=== PATIENT | female | born 1985 | race Two or more races ===

== ENCOUNTER 2020-10-25 10:32 | Emergency (ER) | payer SELFPAY ==
[~2020-10-25] VITALS: Ht 162.6 cm; Wt 74.5 kg
[2020-10-25 10:45] VITALS: BP 144/80
--- NOTE | 2020-10-25 11:18 | ED.ADGEN ---
Past Medical History Past Medical History: No Pertinent History Additional Past Medical Histor: ECTOPIC Additional Past Surgical Histo: BTL, ectopic General Adult EDM: Chief Complaint: VAGINAL PROBLEM HPI: HPI: Patient is a 34 year old female who presents to the emergency department with complaints of irregular thick white vaginal discharge for the last week. She also reports some pain in her vagina after she urinates. Patient denies any irregular vaginal odor or vaginal bleeding. She denies any vaginal itching. Patient states she has had similar discharge like this with previous yeast in fections. She denies any recent antibiotic use. Patient reports she did just begin having intercourse with a new partner about a month ago. Patient states she has been having unprotected intercourse and would like to be tested for STDs, she denies any known exposure to STDs. Patient denies any abdominal pain, nausea, vomiting, diarrhea, fever, hematuria, increased urinary frequency, or difficulty voiding. She currently rates her vaginal discomfort a 6 out of 10 on the pain scale, she denies any alleviating factors, the pain is worse with urination. Review of Systems: Review of Systems: Complete ROS is negative unless otherwise noted in HPI. Current Medications: Current Medications Medications (Trade) Dose Ordered Sig/Jh Start Time Stop Time Status Last Admin Dose Admin Ceftriaxone Sodium (Rocephin Im) 0.5 gm 1X ONCE 10/25/20 11:45 10/25/20 11:46 DC 10/25/20 11:23 0.5 GM Allergies: Allergies: Allergies Coded Allergies Type Severity Reaction Last Updated Verified Penicillins Allergy Severe RASH 10/25/20 Yes Physical Exam: PE: See Above Constitutional: Well developed, well nourished, no acute distress, non-toxic appearance. HENT: Normocephalic, atraumatic, bilateral external ears normal, nose normal. Eyes: PERRLA, EOMI, conjunctiva normal, no discharge. Neck: Normal range of motion, no stridor. Cardiovascular: Heart rate regular rhythm Lungs & Thorax: Respirations even and unlabored, no retractions, no respiratory distress Pelvic Exam: Mining Helper present Leannlc FELDMAN Abdomen: Nontender, soft External Genitalia: Normal Skin, there are some adhesions of the labia majora present, nontender Speculum: Normal vaginal mucosa with thick white discharge present, negative whiff test, normal cervical discharge, cervix nonfriable Bimanual: No adnexal masses or tenderness, No CMT Skin: Warm, dry, no erythema, no rash. Extremities: No cyanosis, ROM intact, no edema. Neurologic: Alert and oriented X 3, no focal deficits noted. Psychologic: Affect normal, judgement normal, mood normal. Current Patient Data: Labs: Laboratory Tests Test 10/25/20 10:45 10/25/20 10:50 Urine Collection Type Void Urine Color Yellow Urine Clarity Cloudy Urine pH 5.0 (<5.0-8.0) Urine Specific [place] >=1.030 (1.000-1.030) Urine Protein Negative mg/dL (NEG-TRACE) Urine Glucose (UA) Negative mg/dL (NEG) Urine Ketones (Stick) Negative mg/dL (NEG) Urine Blood Negative (NEG) Urine Nitrite Negative (NEG) Urine Bilirubin Negative (NEG) Urine Urobilinogen Dipstick 0.2 mg/dL (0.2 mg/dL) Urine Leukocyte Esterase Small (NEG) Urine RBC 0 /HPF (0-2) Urine WBC 5-10 /HPF (0-4) Urine Squamous Epithelial Cells Many /LPF Urine Bacteria Moderate /HPF (0-FEW) POC Urine HCG, Qualitative Hcg negative (Negative) Microbiology 10/25/20 Wet Prep - Final, Complete Vital Signs: Vital Signs Date Time Temp Pulse Resp B/P (MAP) Pulse Ox O2 Delivery O2 Flow Rate FiO2 10/25/20 10:45 98.1 110 16 144/80 100 Room Air 98.1 EKG: EKG: [] Heart Score: C/O Chest Pain: No Radiology/Procedures: Radiology/Procedures: [] Course & Med Decision Making: Course & Med Decision Making Pertinent Labs and Imaging studies reviewed. (See chart for details) 34-year-old female presented to emergency department for evaluation of abnormal vaginal discharge. UA revealed 5-10 white blood cells present, likely contaminated due to many squamous cells being present, otherwise unremarkable, wet mount is not concerning for trichomonas, yeast, or BV. Encouraged patient to stop using vaginal douches as these disrupt the vaginal perlita and cause the irregular discharge. Patient was treated prophylactically with 500 mg of IM Rocephin, and given a prescription for doxycycline. Patient was instructed to avoid having intercourse until the results of gonorrhea and chlamydia testing are available, patient was notified that these results would not be available for 48 hours. If one or both of these tests is positive, patient needs to refrain from intercourse for approximately 1 week following the treatment of any current partners. [] Dragon Disclaimer: Dragon Disclaimer: This electronic medical record was generated, in whole or in part, using a voice recognition dictation system. Departure Departure Impression: Primary Impression: Contact with new sexual partner Additional Impressions: Contact with and (suspected) exposure to infections with a predominantly se xual mode of transmission Vaginal discharge Disposition: HOME / SELF CARE / HOMELESS Condition: STABLE Referrals: LIBRADO KIRBY MD Patient Instructions: Sexually Transmitted Disease, [id number] Additional Instructions: Discontinue vaginal douches as they disrupt the vaginal perlita and can cause your vaginal discharge. Fill the prescription and take as directed. Recommend that you go to your local health department for comprehensive sexually transmitted disease testing. You have been treated for a suspected gonorrhea and chlamydia. Avoid having intercourse until the results of gonorrhea and chlamydia testing are available, these results will not be available for 48 hours. If one or both of these tests is positive, you need to refrain from intercourse for approximately 1 week following the treatment of any current partners. Follow-up with your primary care doctor or Dr. Kirby if symptoms persist, return to ER symptoms worsen. Scripts Doxycycline Hyclate (DOXYCYCLINE HYCLATE) 100 Mg Tablet 1 TAB PO BID, #14 TAB 0 Refills Prov: CYNTHIA PITTMAN APRN 10/25/20 Attending Signature Attending Signature I have reviewed the PA/HAND OR MACHINE PASTER's note and plan of care. I was available for consultation as needed during the patient's visit in the emergency department. I agree with the clinical impression, plan, and disposition. Problem Qualifiers CYNTHIA PITTMAN APRN Oct 25, 2020 11:18 LIBRADO GUTIERREZ DO Oct 25, 2020 12:58
[2020-10-25 11:37] LABS: BILIRUBIN,URINE NEGATIVE (NEG); CLARITY,URINE CLOUDY; COLOR,URINE YELLOW; NITRITE,URINE NEGATIVE (NEG); PROTEIN,URINE NEGATIVE (NEG-TRACE); UROBILINOGEN,URINE 0.2 mg/dL (0.2 mg/dL)
[2020-10-25] MEDS ORDERED: cefTRIAXone IM 1 GM VIAL IM ONE (11:45)
[2020-10-25 11:54] LABS: BACTERIA,URINE MODERATE /HPF (0-FEW); RBC,URINE 0 /HPF (0-2)
[2020-10-25] MEDS ORDERED: DOXY100T PO (12:04)
[2020-10-27 00:23] LABS: GC PROBE Negative (Negative)
== END 2020-10-25 12:10 | disposition home or self-care (01) ==
LOC: ER 10:32
DX: N89.8 Other specified noninflammatory disorders of vagina (principal); Z20.2 Contact with and (suspected) exposure to infections with a predominantly sexual mode of transmission; Z88.0 Allergy status to penicillin
CPT/HCPCS: 81001; 81025; 87086; 87491; 87591; 96372; 99284; J0696; Q0111; 87077